=== PATIENT | male | born 1980 | race Caucasian/White ===

== ENCOUNTER 2019-09-23 22:34 | Inpatient (IN) ==
[2019-09-23 23:11] LABS: Basophils # 0.1 K/mcL (0.0-0.2); Basophils % 0.6 %; Eosinophils # 0.2 K/mcL (0.0-0.6); Eosinophils % 2.9 %; Hemoglobin 13.1 g/dL (12.9-16.9); Immature Granulocytes % 0.4 % (0-4); Lymphocytes # 1.5 K/mcL (0.6-4.6); Lymphocytes % 18.6 %; Mean Corpuscular Hemoglobin 27.3 pg (28.0-33.3); Mean Corpuscular Volume 85.6 fL (83.0-100.0); Mean Platelet Volume 11.1 fL (9.4-12.4); Monocytes # 0.5 K/mcL (0.0-1.3); Monocytes % 6.6 %; Neutrophils # 5.7 K/mcL (1.6-8.9); Platelet Count 204 K/mcL (140-400); Red Blood Count 4.79 M/mcL (4.19-5.50); Red Cell Distribution Width 14.3 % (11.5-14.5); Segmented Neutrophils % 70.9 %
[2019-09-23 23:39] LABS: Alanine Aminotransferase 36 Units/L (7-52); Albumin 3.6 g/dL (3.5-5.7); Albumin/Globulin Ratio 1.3 (1.1-2.2); Alkaline Phosphatase 69 Units/L (34-104); Aspartate Amino Transferase 27 Units/L (13-39); BUN/Creatinine Ratio 17 (6-26); Bilirubin,Direct 0.1 mg/dL (0.0-0.2); Bilirubin,Indirect 0.3 mg/dL (0.0-1.0); Bilirubin,Total 0.4 mg/dL (0.3-1.0); Blood Urea Nitrogen 19 mg/dL (6-20); Calcium 8.5 mg/dL (8.6-10.3); Carbon Dioxide 25 mEq/L (23-29); Chloride 102 mEq/L (98-107); Globulin 2.7 g/dL (2.4-3.5); Glucose 136 mg/dL (70-105); Magnesium 1.7 mg/dL (1.6-2.6); Osmolality,Calculated 288 (280-300); Phosphorous 3.6 mg/dL (2.7-4.5); Potassium 3.6 mEq/L (3.5-5.1); Sodium 137 mEq/L (136-145); Total Protein 6.3 g/dL (6.4-8.9); eGFR For African Americans > 60 (> 60); eGFR For Non-African Americans > 60 (> 60)
[2019-09-23] MEDS ORDERED: Aspirin 325 MG TABLET PO ONE (23:45)
[2019-09-23 23:51] LABS: INR 1.1; Prothrombin Time 12.8 Seconds (9.4-12.1)
[2019-09-23 23:54] LABS: Activated Partial Thrombo Time 34.5 Seconds (26.0-36.0)
[2019-09-24] MEDS ORDERED: Furosemide 40 MG/4 ML VIAL IVP ONE (00:18)
[2019-09-24 00:53] LABS: Bilirubin,Urine Negative (Negative); Blood,Urine Trace (Negative); Clarity,Urine Clear (Clear); Color,Urine Yellow (Yellow); Glucose,Urine (UA) Normal (Normal); Ketones,Urine Negative (Negative); Leukocyte Esterase,Urine Negative (Negative); Nitrite,Urine Negative (Negative); Protein,Urine 100 mg/dL (Neg-Trace); Specific Gravity,Urine 1.028 (1.010-1.025); Urobilinogen,Urine Normal (Normal)
[2019-09-24 00:55] LABS: Bacteria,Urine None Seen per hpf (None-Few); Hyaline Casts,Urine None Seen per lpf (None-Few); Squamous Epithelial Cell,Urine Many per lpf (None-Few); WBC,Urine 0-3 per hpf (0-3)
[2019-09-24] MEDS ORDERED: Naloxone 0.4 MG/ML INJ IVP PRN (01:41)
[2019-09-24] MEDS ORDERED: Albuterol 2.5 MG/3 ML NEBULIZER IH PRN (01:44)
[2019-09-24] MEDS: Ipratropium/Albuterol Neb 3 ML IH SCH ×5 (02:25→22:14)
[2019-09-24 04:18] LABS: Hematocrit 40.2 % (37.5-50.1); Hemoglobin 12.9 g/dL (12.9-16.9); Mean Corpuscular HGB Conc 32.1 g/dL (31.6-35.5); Mean Corpuscular Volume 84.3 fL (83.0-100.0); Mean Platelet Volume 11.1 fL (9.4-12.4); Platelet Count 242 K/mcL (140-400); Red Blood Count 4.77 M/mcL (4.19-5.50); Red Cell Distribution Width 14.2 % (11.5-14.5)
[2019-09-24 04:35] LABS: BUN/Creatinine Ratio 15 (6-26); Blood Urea Nitrogen 16 mg/dL (6-20); Calcium 8.5 mg/dL (8.6-10.3); Carbon Dioxide 25 mEq/L (23-29); Chloride 102 mEq/L (98-107); Glucose 110 mg/dL (70-105); Osmolality,Calculated 286 (280-300); Potassium 3.2 mEq/L (3.5-5.1); Sodium 137 mEq/L (136-145); eGFR For African Americans > 60 (> 60); eGFR For Non-African Americans > 60 (> 60)
[2019-09-24 04:40] LABS: Troponin I 0.11 ng/mL (< 0.04)
[2019-09-24] MEDS ORDERED: Isovue-370 500 ML BOTTLE IVP ONE (04:47)
[2019-09-24] MEDS ORDERED: Potassium Chloride Elixir 20 MEQ/15 ML UDC PO ONE (04:48)
[2019-09-24] MEDS ORDERED: *HR* Heparin 5,000 UNIT/ML VIAL SQ SCH (06:00)
[2019-09-24] MEDS ORDERED: *HR* Heparin 5,000 UNIT/ML VIAL IVP ONE (08:02)
[2019-09-24] MEDS ORDERED: *HR* Heparin 5,000 UNIT/ML VIAL IVP PRN ×2 (08:02)
[2019-09-24 08:44] LABS: Hematocrit 39.9 % (37.5-50.1); Mean Corpuscular HGB Conc 32.6 g/dL (31.6-35.5); Mean Corpuscular Hemoglobin 28.1 pg (28.0-33.3); Mean Corpuscular Volume 86.4 fL (83.0-100.0); Mean Platelet Volume 11.4 fL (9.4-12.4); Platelet Count 228 K/mcL (140-400); Red Blood Count 4.62 M/mcL (4.19-5.50); Red Cell Distribution Width 14.3 % (11.5-14.5); White Blood Count 10.2 K/mcL (4.3-11.1)
[2019-09-24 08:56] LABS: Heparin anti-factor XA UFH < 0.04 IU/mL (0.30-0.70); INR 1.1; Prothrombin Time 12.9 Seconds (9.4-12.1)
[2019-09-24] MEDS: Aspirin Enteric Coated 81 MG Tablet PO SCH (08:56)
[2019-09-24] MEDS ORDERED: NON-FORMULARY MEDICATION 1 EACH EACH (Losartan/Hydrochlorothiazide [Hyzaar 100-12.5 Tablet PO SCH (09:00)
[2019-09-24] MEDS ORDERED: hydroCHLOROthiazide 25 MG TABLET PO SCH (09:00)
[2019-09-24] MEDS ORDERED: atenoloL 50 MG TABLET PO SCH (09:00)
[2019-09-24] MEDS ORDERED: predniSONE 20 MG TABLET PO SCH (09:00)
[2019-09-24] MEDS ORDERED: Furosemide 40 MG/4 ML VIAL IVP SCH (09:00)
[2019-09-24] MEDS: Heparin 25,000 UNIT/250 ML D5W 25,000 UNIT/250 ML IV.SOLN IVC SCH ×2 (09:05→21:36)
[2019-09-24] MEDS ORDERED: Perflutren Lipid Microsphere 1.3 ML in 0.9 % Sodium Chloride 8.7 ML IVP ONE (09:33)
[2019-09-24] MEDS: Magnesium Oxide 400 MG TABLET PO SCH ×2 (13:54→20:41)
[2019-09-24 17:17] LABS: BUN/Creatinine Ratio 15 (6-26); Blood Urea Nitrogen 18 mg/dL (6-20); Calcium 9.1 mg/dL (8.6-10.3); Carbon Dioxide 28 mEq/L (23-29); Chloride 101 mEq/L (98-107); Glucose 134 mg/dL (70-105); Osmolality,Calculated 290 (280-300); Sodium 138 mEq/L (136-145); eGFR For African Americans > 60 (> 60); eGFR For Non-African Americans > 60 (> 60)
[2019-09-24] MEDS: Furosemide 20 MG/2 ML VIAL IVP SCH (20:41)
[2019-09-25] MEDS ORDERED: Melatonin 3 MG TABLET PO PRN (01:00)
[2019-09-25] MEDS ORDERED: Acetaminophen 325 MG TABLET PO PRN (01:00)
[2019-09-25 01:08] LABS: BUN/Creatinine Ratio 17 (6-26); Blood Urea Nitrogen 21 mg/dL (6-20); Carbon Dioxide 27 mEq/L (23-29); Chloride 102 mEq/L (98-107); Glucose 130 mg/dL (70-105); Magnesium 1.8 mg/dL (1.6-2.6); Osmolality,Calculated 293 (280-300); Potassium 3.7 mEq/L (3.5-5.1); Sodium 139 mEq/L (136-145); eGFR For African Americans > 60 (> 60); eGFR For Non-African Americans > 60 (> 60)
[2019-09-25] MEDS: Ipratropium/Albuterol Neb 3 ML IH SCH ×4 (04:06→22:20)
[2019-09-25] MEDS: Furosemide 20 MG/2 ML VIAL IVP SCH ×2 (07:43→21:01)
[2019-09-25] MEDS: Magnesium Oxide 400 MG TABLET PO SCH ×2 (08:02→21:01)
[2019-09-25] MEDS: Aspirin Enteric Coated 81 MG Tablet PO SCH (08:02)
[2019-09-25] MEDS ORDERED: *HR* Heparin 10,000 UNIT/10 ML VIAL ONE (08:52)
[2019-09-25] MEDS ORDERED: 0.9 % Sodium Chloride 1,000 ML ONE ×2 (08:52→09:38)
[2019-09-25] MEDS ORDERED: ISOVUE-370 200 ML INFUS..BTL ONE (08:53)
[2019-09-25] MEDS ORDERED: Nitroglycerin 1,000 MCG/10 ML VIAL IV ONE (08:53)
[2019-09-25] MEDS ORDERED: Heparin 1,000 UNITS/500 mL 500 ML ONE (09:02)
[2019-09-25] MEDS ORDERED: *HR* Midazolam HCl 2 MG/2 ML VIAL ONE (09:38)
[2019-09-25] MEDS ORDERED: *HR* FentaNYL (PF) 100 MCG/2 ML VIAL ONE (09:38)
[2019-09-25] MEDS ORDERED: Metoprolol XL (24 HR) Succ 50 MG TAB.ER.24H PO SCH (11:00)
[2019-09-25] MEDS: Spironolactone 25 MG TABLET PO SCH ×2 (12:11→16:03)
[2019-09-25] MEDS: Heparin 25,000 UNIT/250 ML D5W 25,000 UNIT/250 ML IV.SOLN IVC SCH (13:17)
[2019-09-26 02:42] LABS: Hematocrit 41.1 % (37.5-50.1); Hemoglobin 12.7 g/dL (12.9-16.9); Mean Corpuscular HGB Conc 30.9 g/dL (31.6-35.5); Mean Corpuscular Hemoglobin 27.4 pg (28.0-33.3); Mean Corpuscular Volume 88.6 fL (83.0-100.0); Mean Platelet Volume 11.6 fL (9.4-12.4); Platelet Count 227 K/mcL (140-400); Red Blood Count 4.64 M/mcL (4.19-5.50); Red Cell Distribution Width 14.7 % (11.5-14.5)
[2019-09-26 03:03] LABS: BUN/Creatinine Ratio 20 (6-26); Blood Urea Nitrogen 26 mg/dL (6-20); Calcium 8.7 mg/dL (8.6-10.3); Carbon Dioxide 27 mEq/L (23-29); Chloride 105 mEq/L (98-107); Glucose 108 mg/dL (70-105); Magnesium 1.9 mg/dL (1.6-2.6); Osmolality,Calculated 291 (280-300); Potassium 4.2 mEq/L (3.5-5.1); Sodium 138 mEq/L (136-145); eGFR For African Americans > 60 (> 60); eGFR For Non-African Americans 60 (> 60)
[2019-09-26] MEDS: Ipratropium/Albuterol Neb 3 ML IH SCH ×2 (04:28→10:47)
[2019-09-26 07:31] VITALS: BP 128/90
[2019-09-26] MEDS ORDERED: Furosemide 20 MG TABLET PO SCH (08:00)
[2019-09-26] MEDS: Magnesium Oxide 400 MG TABLET PO SCH (08:23)
[2019-09-26] MEDS: Spironolactone 25 MG TABLET PO SCH (08:23)
[2019-09-26] MEDS: Aspirin Enteric Coated 81 MG Tablet PO SCH (08:24)
[2019-09-26] MEDS ORDERED: Metoprolol XL (24 HR) Succ 50 MG TAB.ER.24H PO SCH (09:00)
== END 2019-09-26 15:48 | disposition home or self-care (01) | DRG 192 ==
LOC: 3BNU 22:34 → EMEROOARM 22:34 → 3BNU 09-24 01:00
PROVIDERS: ADMIT Internal Medicine; ATTEND Internal Medicine

== ENCOUNTER 2021-06-23 15:54 | Inpatient (IN) ==
[2021-06-23] MEDS ORDERED: predniSONE 20 MG TABLET PO ONE (17:42)
[2021-06-23 17:58] LABS: Basophils # 0.1 K/mcL (0.0-0.2); Eosinophils # 0.6 K/mcL (0.0-0.6); Eosinophils % 6.1 %; Hematocrit 40.2 % (37.5-50.1); Hemoglobin 13.3 g/dL (12.9-16.9); Immature Granulocytes % 0.3 % (0-4); Lymphocytes % 10.5 %; Mean Corpuscular HGB Conc 33.1 g/dL (31.6-35.5); Mean Corpuscular Hemoglobin 29.4 pg (28.0-33.3); Mean Corpuscular Volume 88.7 fL (83.0-100.0); Mean Platelet Volume 11.6 fL (9.4-12.4); Monocytes # 0.6 K/mcL (0.0-1.3); Monocytes % 6.3 %; Neutrophils # 7.4 K/mcL (1.6-8.9); Platelet Count 191 K/mcL (140-400); Red Blood Count 4.53 M/mcL (4.19-5.50); Red Cell Distribution Width 14.1 % (11.5-14.5); Segmented Neutrophils % 75.8 %; White Blood Count 9.8 K/mcL (4.3-11.1)
[2021-06-23 18:18] LABS: BUN/Creatinine Ratio 17 (6-26); Blood Urea Nitrogen 16 mg/dL (6-20); Calcium 7.9 mg/dL (8.6-10.3); Carbon Dioxide 30 mEq/L (23-29); Chloride 100 mEq/L (98-107); Glucose 132 mg/dL (70-105); Osmolality,Calculated 289 (280-300); Sodium 138 mEq/L (136-145); eGFR For African Americans > 60 (> 60); eGFR For Non-African Americans > 60 (> 60)
[2021-06-23 18:23] LABS: Troponin I 0.06 ng/mL (< 0.04)
[2021-06-23] MEDS ORDERED: Isovue-370 500 ML BOTTLE IVP ONE (18:37)
[2021-06-23] MEDS ORDERED: Benzocaine 20% 12 APPL GEL..GRAM. TP STA (18:37)
[2021-06-23 18:50] LABS: Influenza A PCR Negative (Negative); Influenza B PCR Negative (Negative); Resp. Syncytial Virus PCR Negative (Negative); SARS-CoV-2 by PCR (In House) Negative (Negative)
[2021-06-23] MEDS ORDERED: Potassium Chloride Elixir 20 MEQ/15 ML UDC PO ONE (20:56)
[2021-06-23] MEDS ORDERED: Naloxone 0.4 MG/ML INJ IVP PRN (21:19)
[2021-06-23] MEDS ORDERED: Melatonin 3 MG TABLET PO PRN (21:19)
[2021-06-23] MEDS ORDERED: Aspirin 325 MG TABLET PO ONE (21:24)
[2021-06-23] MEDS ORDERED: Perflutren Lipid Microsphere 1.3 ML in 0.9 % Sodium Chloride 8.7 ML IVP PRN (21:33)
[2021-06-23] MEDS: Furosemide 40 MG/4 ML VIAL IVP SCH (23:12)
[2021-06-24 02:18] LABS: Hematocrit 40.5 % (37.5-50.1); Hemoglobin 12.9 g/dL (12.9-16.9); Mean Corpuscular HGB Conc 31.9 g/dL (31.6-35.5); Mean Corpuscular Hemoglobin 28.2 pg (28.0-33.3); Mean Corpuscular Volume 88.4 fL (83.0-100.0); Mean Platelet Volume 11.4 fL (9.4-12.4); Platelet Count 198 K/mcL (140-400); Red Blood Count 4.58 M/mcL (4.19-5.50); White Blood Count 9.3 K/mcL (4.3-11.1)
[2021-06-24 02:43] LABS: Alanine Aminotransferase 21 Units/L (7-52); Albumin 3.5 g/dL (3.5-5.7); Albumin/Globulin Ratio 1.3 (1.1-2.2); Alkaline Phosphatase 59 Units/L (34-104); Aspartate Amino Transferase 15 Units/L (13-39); BUN/Creatinine Ratio 15 (6-26); Bilirubin,Total 0.5 mg/dL (0.3-1.0); Blood Urea Nitrogen 16 mg/dL (6-20); Calcium 7.8 mg/dL (8.6-10.3); Carbon Dioxide 30 mEq/L (23-29); Chloride 99 mEq/L (98-107); Globulin 2.7 g/dL (2.4-3.5); Glucose 300 mg/dL (70-105); Magnesium 1.6 mg/dL (1.6-2.6); Osmolality,Calculated 298 (280-300); Phosphorous 2.3 mg/dL (2.7-4.5); Potassium 3.2 mEq/L (3.5-5.1); Sodium 138 mEq/L (136-145); Total Protein 6.2 g/dL (6.4-8.9); eGFR For African Americans > 60 (> 60); eGFR For Non-African Americans > 60 (> 60)
[2021-06-24] MEDS: MethylPREDNISolone 40 MG/ML VIAL IVP SCH ×2 (05:34→16:41)
[2021-06-24] MEDS: *HR* Heparin 5,000 UNIT/ML VIAL SQ SCH ×2 (05:35→16:41)
[2021-06-24] MEDS ORDERED: Potassium Phosphate 44 MEQ in 0.9 % Sodium Chloride 250 ML IVPB ONE (07:52)
[2021-06-24] MEDS: Tiotropium 10 INH DOSE IH SCH (08:36)
[2021-06-24] MEDS: Furosemide 40 MG/4 ML VIAL IVP SCH ×2 (09:35→19:32)
[2021-06-24] MEDS: Sacubitril/Valsartan 24/26 MG 1 TABLET PO SCH ×2 (09:35→19:33)
[2021-06-24] MEDS: Spironolactone 12.5 MG TABLET PO SCH (09:35)
[2021-06-24] MEDS: Metoprolol XL (24 HR) Succ 25 MG TAB.ER.24H PO SCH (09:35)
[2021-06-24] MEDS: Aspirin 81 MG TAB.CHEW PO SCH (09:35)
[2021-06-25 03:36] VITALS: TEMP 97.5
[2021-06-25 05:07] LABS: Hematocrit 39.4 % (37.5-50.1); Hemoglobin 12.8 g/dL (12.9-16.9); Mean Corpuscular HGB Conc 32.5 g/dL (31.6-35.5); Mean Corpuscular Hemoglobin 28.9 pg (28.0-33.3); Mean Corpuscular Volume 88.9 fL (83.0-100.0); Mean Platelet Volume 11.7 fL (9.4-12.4); Platelet Count 213 K/mcL (140-400); Red Blood Count 4.43 M/mcL (4.19-5.50); Red Cell Distribution Width 14.4 % (11.5-14.5); White Blood Count 14.1 K/mcL (4.3-11.1)
[2021-06-25] MEDS ORDERED: Benzocaine 20% 12 APPL GEL..GRAM. TP PRN (05:20)
[2021-06-25] MEDS: MethylPREDNISolone 40 MG/ML VIAL IVP SCH (05:36)
[2021-06-25] MEDS: *HR* Heparin 5,000 UNIT/ML VIAL SQ SCH (05:37)
[2021-06-25 05:40] LABS: BUN/Creatinine Ratio 24 (6-26); Blood Urea Nitrogen 21 mg/dL (6-20); Calcium 8.1 mg/dL (8.6-10.3); Carbon Dioxide 28 mEq/L (23-29); Chloride 105 mEq/L (98-107); Glucose 123 mg/dL (70-105); Osmolality,Calculated 296 (280-300); Potassium 3.6 mEq/L (3.5-5.1); Sodium 141 mEq/L (136-145); eGFR For African Americans > 60 (> 60); eGFR For Non-African Americans > 60 (> 60)
[2021-06-25 06:41] VITALS: BP 94/65; PULSE 81; O2SAT 100
[2021-06-25] MEDS ORDERED: Furosemide 40 MG TABLET PO SCH (08:00)
[2021-06-25] MEDS: Metoprolol XL (24 HR) Succ 25 MG TAB.ER.24H PO SCH (08:31)
[2021-06-25] MEDS: Sacubitril/Valsartan 24/26 MG 1 TABLET PO SCH (08:31)
[2021-06-25] MEDS: Aspirin 81 MG TAB.CHEW PO SCH (08:31)
[2021-06-25] MEDS: Spironolactone 12.5 MG TABLET PO SCH (08:31)
== END 2021-06-25 10:20 | disposition home or self-care (01) | DRG 194 ==
LOC: EMEROOARM 15:54 → 2ANU 22:02 → SUATTDRO 22:02 → 2ANU 22:29
PROVIDERS: ADMIT Student in an Organized Health Care Education/Training Program; ATTEND Family Medicine

== ENCOUNTER 2021-07-21 23:29 | Inpatient (IN) ==
[2021-07-21] MEDS ORDERED: Ipratropium/Albuterol Neb 3 ML IH ONE (23:41)
[2021-07-21] MEDS ORDERED: methylPREDNISolone 125 MG/2 ML VIAL IVP ONE (23:41)
[2021-07-21] MEDS ORDERED: Furosemide 40 MG/4 ML VIAL IVP ONE (23:41)
[2021-07-22 00:44] LABS: Basophils # 0.1 K/mcL (0.0-0.2); Basophils % 0.9 %; Eosinophils # 0.5 K/mcL (0.0-0.6); Eosinophils % 5.4 %; Hematocrit 40.8 % (37.5-50.1); Immature Granulocytes % 0.3 % (0-4); Lymphocytes # 0.9 K/mcL (0.6-4.6); Lymphocytes % 9.6 %; Mean Corpuscular HGB Conc 31.9 g/dL (31.6-35.5); Mean Corpuscular Hemoglobin 28.3 pg (28.0-33.3); Mean Corpuscular Volume 88.7 fL (83.0-100.0); Mean Platelet Volume 11.3 fL (9.4-12.4); Monocytes # 0.7 K/mcL (0.0-1.3); Neutrophils # 6.8 K/mcL (1.6-8.9); Platelet Count 192 K/mcL (140-400); Red Cell Distribution Width 15.6 % (11.5-14.5); Segmented Neutrophils % 75.8 %
[2021-07-22 00:46] LABS: Influenza A PCR Negative (Negative); Influenza B PCR Negative (Negative); Resp. Syncytial Virus PCR Negative (Negative)
[2021-07-22] MEDS ORDERED: Isovue-370 500 ML BOTTLE IVP ONE (01:10)
[2021-07-22 01:14] LABS: BUN/Creatinine Ratio 15 (6-26); Blood Urea Nitrogen 15 mg/dL (6-20); Calcium 8.7 mg/dL (8.6-10.3); Chloride 102 mEq/L (98-107); Glucose 141 mg/dL (70-105); Osmolality,Calculated 287 (280-300); Potassium 3.7 mEq/L (3.5-5.1); Sodium 137 mEq/L (136-145); Troponin I 0.07 ng/mL (< 0.04); eGFR For African Americans > 60 (> 60); eGFR For Non-African Americans > 60 (> 60)
[2021-07-22 01:20] LABS: Carbon Dioxide 27 mEq/L (23-29)
[2021-07-22 01:53] LABS: SARS-CoV-2 by PCR (In House) Negative (Negative)
[2021-07-22] MEDS: Aspirin 325 MG TABLET PO ONE (01:54)
[2021-07-22 05:19] LABS: ABG Base Excess 2 mEq/L (-2 to 3); ABG HCO3 28 mEq/L (21-27); ABG Oxygen Saturation 100 % (95-98); ABG PCO2 46 mmHg (35-45); ABG PH 7.39 pH Units (7.32-7.45); ABG PO2 221 mmHg (85-104); ABG TCO2 29 mEq/L (20-26)
[2021-07-22] MEDS ORDERED: Naloxone 0.4 MG/ML INJ IVP PRN (05:47)
[2021-07-22] MEDS ORDERED: Melatonin 3 MG TABLET PO PRN (05:47)
[2021-07-22] MEDS ORDERED: Perflutren Lipid Microsphere 1.3 ML in 0.9 % Sodium Chloride 8.7 ML IVP PRN (06:16)
[2021-07-22] MEDS: MethylPREDNISolone 40 MG/ML VIAL IVP SCH ×4 (08:52→23:24)
[2021-07-22] MEDS: Aspirin 81 MG TAB.CHEW PO SCH (08:52)
[2021-07-22] MEDS: Furosemide 40 MG/4 ML VIAL IVP SCH ×2 (10:06→23:24)
[2021-07-22] MEDS: Ipratropium/Albuterol Neb 3 ML IH SCH ×3 (10:52→21:17)
[2021-07-22] MEDS ORDERED: Saliva Stimulant 44.3ml BOTTLE PO PRN (11:03)
[2021-07-22] MEDS: *HR* Heparin 5,000 UNIT/ML VIAL SQ SCH (17:08)
[2021-07-23] MEDS: Ipratropium/Albuterol Neb 3 ML IH SCH ×4 (04:42→20:23)
[2021-07-23] MEDS: *HR* Heparin 5,000 UNIT/ML VIAL SQ SCH ×2 (06:07→16:59)
[2021-07-23] MEDS: Aspirin 81 MG TAB.CHEW PO SCH (08:33)
[2021-07-23] MEDS: MethylPREDNISolone 40 MG/ML VIAL IVP SCH ×2 (08:33→15:12)
[2021-07-23 08:44] LABS: Hematocrit 41.9 % (37.5-50.1); Hemoglobin 13.3 g/dL (12.9-16.9); Mean Corpuscular HGB Conc 31.7 g/dL (31.6-35.5); Mean Corpuscular Hemoglobin 27.9 pg (28.0-33.3); Mean Corpuscular Volume 87.8 fL (83.0-100.0); Mean Platelet Volume 11.5 fL (9.4-12.4); Platelet Count 217 K/mcL (140-400); Red Blood Count 4.77 M/mcL (4.19-5.50); Red Cell Distribution Width 15.8 % (11.5-14.5); White Blood Count 10.9 K/mcL (4.3-11.1)
[2021-07-23 09:12] LABS: BUN/Creatinine Ratio 24 (6-26); Blood Urea Nitrogen 27 mg/dL (6-20); Calcium 8.6 mg/dL (8.6-10.3); Carbon Dioxide 27 mEq/L (23-29); Chloride 100 mEq/L (98-107); Glucose 162 mg/dL (70-105); Magnesium 1.9 mg/dL (1.6-2.6); Osmolality,Calculated 293 (280-300); Phosphorous 4.7 mg/dL (2.7-4.5); Potassium 4.1 mEq/L (3.5-5.1); Sodium 137 mEq/L (136-145); eGFR For African Americans > 60 (> 60); eGFR For Non-African Americans > 60 (> 60)
[2021-07-23] MEDS: Furosemide 40 MG/4 ML VIAL IVP SCH ×2 (11:33→16:59)
[2021-07-23] MEDS: Sacubitril/Valsartan 24/26 MG 1 TABLET PO SCH (19:59)
[2021-07-24] MEDS: MethylPREDNISolone 40 MG/ML VIAL IVP SCH ×3 (00:03→16:53)
[2021-07-24] MEDS: Ipratropium/Albuterol Neb 3 ML IH SCH ×4 (04:00→20:16)
[2021-07-24] MEDS: *HR* Heparin 5,000 UNIT/ML VIAL SQ SCH ×3 (05:26→19:57)
[2021-07-24 05:27] LABS: Hematocrit 41.8 % (37.5-50.1); Mean Corpuscular HGB Conc 31.1 g/dL (31.6-35.5); Mean Corpuscular Hemoglobin 27.7 pg (28.0-33.3); Mean Corpuscular Volume 88.9 fL (83.0-100.0); Mean Platelet Volume 11.3 fL (9.4-12.4); Platelet Count 214 K/mcL (140-400); Red Cell Distribution Width 15.7 % (11.5-14.5); White Blood Count 11.5 K/mcL (4.3-11.1)
[2021-07-24 05:51] LABS: BUN/Creatinine Ratio 30 (6-26); Blood Urea Nitrogen 30 mg/dL (6-20); Calcium 8.4 mg/dL (8.6-10.3); Carbon Dioxide 31 mEq/L (23-29); Chloride 97 mEq/L (98-107); Glucose 200 mg/dL (70-105); Osmolality,Calculated 290 (280-300); Potassium 3.9 mEq/L (3.5-5.1); Sodium 134 mEq/L (136-145); eGFR For African Americans > 60 (> 60); eGFR For Non-African Americans > 60 (> 60)
[2021-07-24] MEDS: Sacubitril/Valsartan 24/26 MG 1 TABLET PO SCH ×2 (07:40→19:57)
[2021-07-24] MEDS: Aspirin 81 MG TAB.CHEW PO SCH (07:41)
[2021-07-24] MEDS: Furosemide 40 MG/4 ML VIAL IVP SCH ×2 (07:41→16:53)
[2021-07-24] MEDS: Spironolactone 12.5 MG TABLET PO SCH (07:42)
[2021-07-24] MEDS: Metoprolol XL (24 HR) Succ 50 MG TAB.ER.24H PO SCH (07:54)
[2021-07-24 12:54] LABS: Magnesium 1.9 mg/dL (1.6-2.6)
[2021-07-24] MEDS: Fluticasone Propionate Nasal 50 MCG/SPRAY BOTTLE NS SCH (13:04)
[2021-07-24] MEDS: Loratadine 10 MG TABLET PO SCH (13:04)
[2021-07-25] MEDS: MethylPREDNISolone 40 MG/ML VIAL IVP SCH ×2 (00:40→07:35)
[2021-07-25 03:07] LABS: Hemoglobin 13.5 g/dL (12.9-16.9); Mean Corpuscular HGB Conc 30.7 g/dL (31.6-35.5); Mean Corpuscular Volume 91.1 fL (83.0-100.0); Mean Platelet Volume 11.4 fL (9.4-12.4); Platelet Count 222 K/mcL (140-400); Red Blood Count 4.83 M/mcL (4.19-5.50); Red Cell Distribution Width 15.7 % (11.5-14.5)
[2021-07-25 03:26] LABS: BUN/Creatinine Ratio 29 (6-26); Blood Urea Nitrogen 30 mg/dL (6-20); Calcium 8.4 mg/dL (8.6-10.3); Carbon Dioxide 29 mEq/L (23-29); Chloride 98 mEq/L (98-107); Glucose 224 mg/dL (70-105); Osmolality,Calculated 297 (280-300); Potassium 3.9 mEq/L (3.5-5.1); Sodium 137 mEq/L (136-145); eGFR For African Americans > 60 (> 60); eGFR For Non-African Americans > 60 (> 60)
[2021-07-25] MEDS: Ipratropium/Albuterol Neb 3 ML IH SCH ×4 (04:16→20:01)
[2021-07-25] MEDS: *HR* Heparin 5,000 UNIT/ML VIAL SQ SCH ×3 (06:08→20:49)
[2021-07-25] MEDS: Sacubitril/Valsartan 24/26 MG 1 TABLET PO SCH ×2 (07:34→20:51)
[2021-07-25] MEDS: Aspirin 81 MG TAB.CHEW PO SCH (07:34)
[2021-07-25] MEDS: Loratadine 10 MG TABLET PO SCH (07:35)
[2021-07-25] MEDS: Furosemide 40 MG/4 ML VIAL IVP SCH (07:35)
[2021-07-25] MEDS: Spironolactone 12.5 MG TABLET PO SCH (07:35)
[2021-07-25] MEDS: Metoprolol XL (24 HR) Succ 50 MG TAB.ER.24H PO SCH (07:35)
[2021-07-25] MEDS: Fluticasone Propionate Nasal 50 MCG/SPRAY BOTTLE NS SCH (07:36)
[2021-07-25] MEDS ORDERED: Dextrose Gel 15 GM/37.5 ML TUBE PO PRN ×2 (07:39)
[2021-07-25] MEDS ORDERED: D5% in Water 1,000 ML IVC PRN (07:39)
[2021-07-25] MEDS ORDERED: *HR* Dextrose 50 % in Water (Syg) 50 ML SYRINGE IVP PRN (07:39)
[2021-07-25] MEDS: Insulin LISPRO 300 UNITS/3 ML VIAL SUBQ SCH ×3 (08:53→17:04)
[2021-07-25] MEDS: predniSONE 20 MG TABLET PO SCH (15:22)
[2021-07-25 16:11] LABS: Estimated Average Glucose 163 mg/dl; Hemoglobin A1C 7.3 %
[2021-07-25] MEDS: Furosemide 40 MG TABLET PO SCH (17:04)
[2021-07-25] MEDS ORDERED: Moderna Covid-19 Vaccine 100MCG/0.5mL IM ONE (18:13)
[2021-07-25] MEDS ORDERED: Insulin LISPRO 300 UNITS/3 ML VIAL SUBQ SCH (21:00)
[2021-07-26 03:59] LABS: Hematocrit 44.3 % (37.5-50.1); Hemoglobin 13.9 g/dL (12.9-16.9); Mean Corpuscular HGB Conc 31.4 g/dL (31.6-35.5); Mean Corpuscular Hemoglobin 28.5 pg (28.0-33.3); Mean Platelet Volume 11.1 fL (9.4-12.4); Platelet Count 230 K/mcL (140-400); Red Blood Count 4.87 M/mcL (4.19-5.50); Red Cell Distribution Width 15.6 % (11.5-14.5); White Blood Count 13.2 K/mcL (4.3-11.1)
[2021-07-26] MEDS: Ipratropium/Albuterol Neb 3 ML IH SCH ×2 (04:13→10:18)
[2021-07-26 04:24] LABS: BUN/Creatinine Ratio 33 (6-26); Blood Urea Nitrogen 31 mg/dL (6-20); Calcium 8.5 mg/dL (8.6-10.3); Carbon Dioxide 29 mEq/L (23-29); Chloride 102 mEq/L (98-107); Glucose 163 mg/dL (70-105); Osmolality,Calculated 296 (280-300); Potassium 4.1 mEq/L (3.5-5.1); Sodium 138 mEq/L (136-145); eGFR For African Americans > 60 (> 60); eGFR For Non-African Americans > 60 (> 60)
[2021-07-26] MEDS: *HR* Heparin 5,000 UNIT/ML VIAL SQ SCH (05:33)
[2021-07-26] MEDS: Aspirin 81 MG TAB.CHEW PO SCH (08:19)
[2021-07-26] MEDS: Metoprolol XL (24 HR) Succ 50 MG TAB.ER.24H PO SCH (08:20)
[2021-07-26] MEDS: Spironolactone 12.5 MG TABLET PO SCH (08:20)
[2021-07-26] MEDS: Sacubitril/Valsartan 24/26 MG 1 TABLET PO SCH (08:20)
[2021-07-26] MEDS: predniSONE 20 MG TABLET PO SCH (08:20)
[2021-07-26] MEDS: Loratadine 10 MG TABLET PO SCH (08:20)
[2021-07-26] MEDS: Furosemide 40 MG TABLET PO SCH (08:20)
[2021-07-26] MEDS: Insulin LISPRO 300 UNITS/3 ML VIAL SUBQ SCH (08:20)
[2021-07-26] MEDS: Fluticasone Propionate Nasal 50 MCG/SPRAY BOTTLE NS SCH (08:21)
[2021-07-26 10:53] VITALS: BP 103/69; PULSE 86; TEMP 97.6
[2021-07-26 11:59] VITALS: O2SAT 98
[2021-07-26] MEDS ORDERED: FLU Vac QV 21-22 (6Month+)/PF 0.5 ML SYRINGE IM ONE (12:13)
== END 2021-07-26 13:59 | disposition home or self-care (01) | DRG 194 ==
LOC: EMEROOARM 23:29 → 2ANU 23:29 → SUATTDRO 07-22 05:47 → 2ANU 07-22 05:50
PROVIDERS: ADMIT Internal Medicine; ATTEND Internal Medicine

== ENCOUNTER 2021-10-12 14:25 | Observation (INO) ==
[2021-10-12 15:21] LABS: Basophils # 0.1 K/mcL (0.0-0.2); Basophils % 0.7 %; Eosinophils # 0.1 K/mcL (0.0-0.6); Eosinophils % 0.7 %; Hematocrit 44.7 % (37.5-50.1); Hemoglobin 14.6 g/dL (12.9-16.9); Immature Granulocytes % 0.2 % (0-4); Lymphocytes # 0.8 K/mcL (0.6-4.6); Mean Corpuscular HGB Conc 32.7 g/dL (31.6-35.5); Mean Corpuscular Hemoglobin 28.3 pg (28.0-33.3); Mean Corpuscular Volume 86.6 fL (83.0-100.0); Mean Platelet Volume 11.8 fL (9.4-12.4); Monocytes # 0.8 K/mcL (0.0-1.3); Monocytes % 8.3 %; Neutrophils # 7.6 K/mcL (1.6-8.9); Platelet Count 214 K/mcL (140-400); Red Blood Count 5.16 M/mcL (4.19-5.50); Red Cell Distribution Width 17.7 % (11.5-14.5); Segmented Neutrophils % 81.1 %; White Blood Count 9.4 K/mcL (4.3-11.1)
[2021-10-12 15:21] LABS: VBG HCO3 26 mEq/L (21-27); VBG PCO2 40 mmHg (41-51); VBG PH 7.42 pH Units (7.32-7.42); VBG PO2 138 mmHg (25-50)
[2021-10-12 15:49] LABS: Troponin I 0.07 ng/mL (< 0.04)
[2021-10-12] MEDS ORDERED: Furosemide 40 MG/4 ML VIAL IVP ONE (15:53)
[2021-10-12] MEDS: Nitroglycerin 0.4 MG TAB.SUBL SL PRN ×2 (16:05→16:09)
[2021-10-12 18:06] LABS: Alanine Aminotransferase 11 Units/L (7-52); Albumin 3.9 g/dL (3.5-5.7); Albumin/Globulin Ratio 1.3 (1.1-2.2); Alkaline Phosphatase 66 Units/L (34-104); Aspartate Amino Transferase 14 Units/L (13-39); BUN/Creatinine Ratio 13 (6-26); Bilirubin,Total 1.5 mg/dL (0.3-1.0); Blood Urea Nitrogen 13 mg/dL (6-20); Calcium 9.2 mg/dL (8.6-10.3); Carbon Dioxide 24 mEq/L (23-29); Chloride 99 mEq/L (98-107); Globulin 2.9 g/dL (2.4-3.5); Glucose 130 mg/dL (70-105); Osmolality,Calculated 286 (280-300); Potassium 3.9 mEq/L (3.5-5.1); Sodium 137 mEq/L (136-145); Total Protein 6.8 g/dL (6.4-8.9); eGFR For African Americans > 60 (> 60); eGFR For Non-African Americans > 60 (> 60)
[2021-10-12] MEDS ORDERED: *HR* Labetalol 20 MG/4 ML SYRINGE IVP PRN (21:13)
[2021-10-12] MEDS ORDERED: Ipratropium/Albuterol Neb 3 ML IH PRN (21:13)
[2021-10-12] MEDS ORDERED: Ondansetron 4 MG/2 ML VIAL IVP ONE (21:13)
[2021-10-12] MEDS ORDERED: Nitroglycerin 0.4 MG TAB.SUBL SL PRN (21:13)
[2021-10-12] MEDS ORDERED: Naloxone 0.4 MG/ML INJ IVP PRN (21:16)
[2021-10-12] MEDS ORDERED: Dextrose 4 GM Chewable Tablets PO PRN ×2 (21:17)
[2021-10-12] MEDS ORDERED: *HR* Dextrose 50 % in Water (Syg) 50 ML SYRINGE IVP PRN (21:17)
[2021-10-12] MEDS ORDERED: D5% in Water 1,000 ML IVC PRN (21:17)
[2021-10-12] MEDS: Sacubitril/Valsartan 49/51 MG 1 TABLET PO SCH (21:31)
[2021-10-13 03:19] LABS: Basophils # 0.1 K/mcL (0.0-0.2); Basophils % 0.9 %; Eosinophils # 0.2 K/mcL (0.0-0.6); Eosinophils % 2.1 %; Hematocrit 42.7 % (37.5-50.1); Hemoglobin 13.9 g/dL (12.9-16.9); Immature Granulocytes % 0.3 % (0-4); Lymphocytes # 1.2 K/mcL (0.6-4.6); Lymphocytes % 13.4 %; Mean Corpuscular HGB Conc 32.6 g/dL (31.6-35.5); Mean Corpuscular Hemoglobin 28.1 pg (28.0-33.3); Mean Corpuscular Volume 86.3 fL (83.0-100.0); Mean Platelet Volume 11.6 fL (9.4-12.4); Monocytes % 10.7 %; Neutrophils # 6.4 K/mcL (1.6-8.9); Platelet Count 200 K/mcL (140-400); Red Blood Count 4.95 M/mcL (4.19-5.50); Red Cell Distribution Width 17.2 % (11.5-14.5); Segmented Neutrophils % 72.6 %; White Blood Count 8.9 K/mcL (4.3-11.1)
[2021-10-13 03:39] LABS: BUN/Creatinine Ratio 18 (6-26); Blood Urea Nitrogen 18 mg/dL (6-20); Calcium 8.8 mg/dL (8.6-10.3); Carbon Dioxide 29 mEq/L (23-29); Chloride 102 mEq/L (98-107); Chol/HDL Ratio 4.3 (0-4.9); Cholesterol 81 mg/dL (< 200); Glucose 89 mg/dL (70-105); HDL Cholesterol 19 mg/dL (40-59); LDL Cholesterol,Calculated 39 mg/dL (< 100); Magnesium 1.7 mg/dL (1.6-2.6); Osmolality,Calculated 287 (280-300); Phosphorous 4.2 mg/dL (2.7-4.5); Potassium 3.3 mEq/L (3.5-5.1); Sodium 138 mEq/L (136-145); Triglycerides 117 mg/dL (< 150); eGFR For African Americans > 60 (> 60); eGFR For Non-African Americans > 60 (> 60)
[2021-10-13] MEDS: *HR* Heparin 5,000 UNIT/ML VIAL SQ SCH ×2 (06:24→17:31)
[2021-10-13] MEDS ORDERED: Bumetanide 1 MG/4 ML VIAL IVP SCH (08:00)
[2021-10-13] MEDS: Insulin LISPRO 300 UNITS/3 ML VIAL SUBQ SCH ×3 (08:32→17:41)
[2021-10-13] MEDS: Aspirin Enteric Coated 81 MG Tablet PO SCH (09:42)
[2021-10-13] MEDS: Loratadine 10 MG TABLET PO SCH (09:42)
[2021-10-13] MEDS: Spironolactone 12.5 MG TABLET PO SCH (09:42)
[2021-10-13] MEDS: Metoprolol XL (24 HR) Succ 50 MG TAB.ER.24H PO SCH (09:42)
[2021-10-13] MEDS: Sacubitril/Valsartan 49/51 MG 1 TABLET PO SCH ×2 (09:42→21:22)
[2021-10-13] MEDS: Bumetanide 1 MG/4 ML VIAL IVP SCH ×2 (11:04→17:32)
[2021-10-13] MEDS: Tiotropium 10 INH DOSE IH SCH (11:09)
[2021-10-13] MEDS ORDERED: Insulin LISPRO 300 UNITS/3 ML VIAL SUBQ SCH (21:00)
[2021-10-14] MEDS: *HR* Heparin 5,000 UNIT/ML VIAL SQ SCH (06:34)
[2021-10-14 06:43] LABS: Basophils # 0.1 K/mcL (0.0-0.2); Eosinophils # 0.2 K/mcL (0.0-0.6); Eosinophils % 2.6 %; Hematocrit 47.7 % (37.5-50.1); Hemoglobin 15.2 g/dL (12.9-16.9); Immature Granulocytes % 0.3 % (0-4); Lymphocytes # 1.4 K/mcL (0.6-4.6); Lymphocytes % 16.1 %; Mean Corpuscular HGB Conc 31.9 g/dL (31.6-35.5); Mean Corpuscular Hemoglobin 27.7 pg (28.0-33.3); Mean Platelet Volume 11.5 fL (9.4-12.4); Monocytes # 0.8 K/mcL (0.0-1.3); Monocytes % 9.1 %; Neutrophils # 6.3 K/mcL (1.6-8.9); Platelet Count 223 K/mcL (140-400); Red Blood Count 5.48 M/mcL (4.19-5.50); Red Cell Distribution Width 17.4 % (11.5-14.5); Segmented Neutrophils % 70.9 %; White Blood Count 8.9 K/mcL (4.3-11.1)
[2021-10-14 07:06] LABS: BUN/Creatinine Ratio 17 (6-26); Blood Urea Nitrogen 19 mg/dL (6-20); Calcium 9.1 mg/dL (8.6-10.3); Carbon Dioxide 31 mEq/L (23-29); Chloride 101 mEq/L (98-107); Glucose 104 mg/dL (70-105); Osmolality,Calculated 289 (280-300); Potassium 3.8 mEq/L (3.5-5.1); Sodium 138 mEq/L (136-145); eGFR For African Americans > 60 (> 60); eGFR For Non-African Americans > 60 (> 60)
[2021-10-14] MEDS: Tiotropium 10 INH DOSE IH SCH (08:01)
[2021-10-14] MEDS: Insulin LISPRO 300 UNITS/3 ML VIAL SUBQ SCH ×2 (08:20→13:47)
[2021-10-14] MEDS: Aspirin Enteric Coated 81 MG Tablet PO SCH (08:57)
[2021-10-14] MEDS: Bumetanide 1 MG/4 ML VIAL IVP SCH (08:57)
[2021-10-14] MEDS: Sacubitril/Valsartan 49/51 MG 1 TABLET PO SCH (08:57)
[2021-10-14] MEDS: Loratadine 10 MG TABLET PO SCH (08:57)
[2021-10-14] MEDS: Spironolactone 12.5 MG TABLET PO SCH (08:57)
[2021-10-14] MEDS: Metoprolol XL (24 HR) Succ 50 MG TAB.ER.24H PO SCH (08:57)
[2021-10-14 10:29] VITALS: BP 103/72; PULSE 77; TEMP 98.6
[2021-10-14 12:00] LABS: Troponin I 0.04 ng/mL (< 0.04)
[2021-10-14 13:21] VITALS: O2SAT 95
== END 2021-10-14 13:55 | disposition home or self-care (01) ==
LOC: EMEROOARM 14:25 → 3ANU 14:25 → SUATTDRO 17:58 → 3ANU 19:43
PROVIDERS: ADMIT Internal Medicine; ATTEND Student in an Organized Health Care Education/Training Program